=== PATIENT | female | born 2000 | race Caucasian/White ===

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

== ENCOUNTER 2018-03-18 01:41 | Emergency (ER) | payer OTHER, MEDICAID | END 2018-03-18 03:36 | disposition home or self-care (01) | LOC: FTE 01:41 | DX: A60.1 Herpesviral infection of perianal skin and rectum (principal) | CPT/HCPCS: 87591; 99283 ==

== ENCOUNTER 2019-03-02 21:59 | Emergency (ER) | payer OTHER ==
[2019-03-03 02:04] LABS: ADD MAN DIFF? NO
[2019-03-03 02:06] LABS: WHITE BLOOD COUNT 6.8 10^3/ul (4.8-10.8)
[2019-03-03 02:06] LABS: HEMATOCRIT 40.8 % (37.0-47.0); HEMOGLOBIN 13.5 g/dl (12.0-16.0); MEAN CORPUSCULAR HEMOGLOBIN 31.5 pg (29.0-33.0); MEAN CORPUSCULAR HGB CONC 33.1 g/dl (32.0-37.0); MEAN CORPUSCULAR VOLUME 95.1 fl (72.0-104.0); MEAN PLATELET VOLUME 8.7 fl (7.4-10.4); PLATELET COUNT 370 10^3/UL (140-415); RED BLOOD COUNT 4.29 10^6/ul (4.20-5.40)
[2019-03-03 02:35] LABS: ADD UMIC YES; UR ASCORBIC ACID NEGATIVE (NEGATIVE); UR BILIRUBIN (Dip) NEGATIVE (NEGATIVE); UR BLOOD (Dip) 2+ mg/dL (NEGATIVE); UR CLARITY CLOUDY (CLEAR); UR COLOR YELLOW (YELLOW); UR GLUCOSE (Dip) NEGATIVE (NEGATIVE); UR KETONES (Dip) NEGATIVE (NEGATIVE); UR LEUKOCYTE ESTERASE (Dip) NEGATIVE Leu/ul (NEGATIVE); UR MUCUS FEW /HPF (NONE SEEN); UR NITRITE (Dip) NEGATIVE (NEGATIVE); UR RBC 5 /HPF (0-5); UR SPECIFIC GRAVITY (Dip) 1.016 (1.003-1.030); UR SQUAMOUS EPITHELIAL CELL FEW /HPF (FEW); UR TOTAL PROTEIN (Dip) NEGATIVE (NEGATIVE); UR UROBILINOGEN (Dip) NEGATIVE (NEGATIVE); UR WBC 2 /HPF (0-5)
[2019-03-03 05:50] LABS: BASOPHILS % (M) 1 % (0-2); LYMPHOCYTES #M 4.8 10^3/ul (0.8-2.9); LYMPHOCYTES % (M) 71 % (18-55); MONOCYTE #M 0.5 10^3/ul (0.3-0.9); MONOCYTES % (M) 8 % (0-13); PLATELET ESTIMATE NORMAL; POIKILOCYTOSIS 1+ (0-0); SEGMENTED NEUTROPHILS (M) % 20 % (30-74); SMUDGE%M 10 % (0-0)
== END 2019-03-03 03:26 | disposition home or self-care (01) ==
LOC: FTE 03-03 03:26
DX: O03.9 Complete or unspecified spontaneous abortion without complication (principal)
CPT/HCPCS: 36415; 81001; 85025; 99283

== ENCOUNTER 2019-03-18 20:44 | Emergency (ER) | payer OTHER | END 2019-03-18 22:06 | disposition home or self-care (01) | LOC: FTE 20:44 | DX: S30.84 External constriction of abdomen, lower back, pelvis and external genitals (principal); R10.2 Pelvic and perineal pain; W49.01XA Hair causing external constriction, initial encounter; Y92.9 Unspecified place or not applicable | CPT/HCPCS: 99283; Z7502 ==